=== PATIENT | female | born 1925 | race Caucasian/White ===

== ENCOUNTER 2017-02-24 18:47 | Emergency (ER) | payer MEDICARE, MEDICAID ==
[~2017-02-24] VITALS: Ht 154.9 cm; Wt 65.0 kg
[~2017-02-24 18:47] MED LIST: ASPIRIN PO; DOCUSATE PO; FAMO20TA96 PO; FURO20TA4 PO; HYDROCHLOROTHIAZIDE PO; IBUPROFEN PO; NAMENDA PO; PANTOPRAZOLE PO; POTASSIUM CHLORIDE PO; RISPERIDONE PO; TRAM50TA3 PO
[2017-02-24] MEDS ORDERED: SODIUM CHLORIDE 0.9% 500 ML IV ONE (21:52)
[2017-02-24 22:49] LABS: BASOPHILS % 0.9 % (0.0-2.0); EOSINOPHILS % 4.2 % (0.0-5.0); HEMATOCRIT. 34.9 % (36.0-48.0); HEMOGLOBIN. 11.2 g/dL (12.0-16.0); LYMPHOCYTES % 31.7 % (20.0-50.0); MEAN CORPUSCULAR HEMOGLOBIN 26.6 pg (28.0-32.0); MEAN CORPUSCULAR HGB CONC 32.1 g/dL (31.0-37.0); MEAN CORPUSCULAR VOLUME 82.8 fL (81.0-99.0); MEAN PLATELET VOLUME 9.1 fl (7.4-10.4); MONOCYTES % 10.8 % (2.0-8.0); NEUTROPHILS % 52.4 % (40.0-76.0); PLATELET 196 x1000/uL (130-400); RED BLOOD CELL COUNT 4.21 mill/uL (4.2-5.4); RED CELL DISTRIBUTION WIDTH 14.9 % (11.6-14.6); WHITE BLOOD COUNT 9.6 x1000/uL (4.5-11.0)
[2017-02-24 22:51] LABS: CHLORIDE 107 mEq/L (98-107); INDEX HEMOLYSI 1 (1-3); INDEX ICTERIC 1 (1-4); INDEX LIPEMIC 1 (1-3)
[2017-02-24 22:52] LABS: PROTHROMBIN TIME 10.5 sec
[2017-02-24 22:57] LABS: CLARITY URINE CLOUDY (CLEAR); COLOR URINE YELLOW (YELLOW); GLUCOSE URINE NEGATIVE (NEGATIVE); KETONES URINE NEGATIVE (NEGATIVE); LEUKOCYTE ESTERASE URINE TRACE (NEGATIVE); NITRITE URINE NEGATIVE (NEGATIVE); OCCULT BLOOD URINE NEGATIVE (NEGATIVE); PROTEIN URINE NEGATIVE (NEGATIVE); SPECIFIC GRAVITY URINE 1.011 (1.005-1.030)
[2017-02-24 22:58] LABS: ALANINE AMINOTRANSFERASE 9 IU/L (13-61); ALBUMIN 3.3 g/dL (3.4-5.0); ANION GAP 14; CALCIUM 8.9 mg/dL (8.5-10.1); CARBON DIOXIDE 26 mEq/L (21-32); UREA NITROGEN BLOOD 26 mg/dL (7-21); eGFR 47 mL/min (>60)
[2017-02-24 23:14] LABS: BACTERIA URINE 1+; RBC URINE NONE SEEN /hpf (0-2); SQUAMOUS EPITHELIAL CELL URINE FEW /lpf (RARE/1+)
[2017-02-25 08:19] VITALS: BP 133/53
== END 2017-02-25 08:51 | disposition home or self-care (01) ==
LOC: ER 20:00
DX: N39.0 Urinary tract infection, site not specified (principal); M54.5 Low back pain; G89.29 Other chronic pain; F03.90 Unspecified dementia, unspecified severity, without behavioral disturbance, psychotic disturbance, mood disturbance, and anxiety; K21.9 Gastro-esophageal reflux disease without esophagitis; I10 Essential (primary) hypertension
CPT/HCPCS: 36415; 74176; 80053; 81001; 82962; 85025; 85610; 96360; 99285; J7030